=== PATIENT | female | born 1935 | race Two or more races ===

== ENCOUNTER 2016-07-28 03:05 | Inpatient (IN) | payer MEDICARE, MEDICAID ==
[~2016-07-28 03:05] MED LIST: ALENDRONATE SOD70 M2 PO; ASPIR 8181 M1 PO; CALCIUM + VITA1 EAC4 PO; CALCIUM500 MG; GAS RELIEF80 MG; H; METFORMIN HCL500 MG; MULTIVITAMIN1 TAB; NITROGLYCERIN0.4 M2 SL; OMEPRAZOLE40 M2 PO; ZESTORETIC 20-1 EAC4 PO; ZOCOR10 MG
[2016-07-28] MEDS ORDERED: BYSTOLIC5 M1 (03:23)
[2016-07-28] MEDS ORDERED: CHLORTHALIDONE PO (03:25)
[2016-07-28] MEDS ORDERED: AZILSARTAN PO (03:25)
[2016-07-28] MEDS ORDERED: ZOLOFT50 M1 PO (03:25)
[2016-07-28] MEDS ORDERED: REGLAN10 M2 PO (03:27)
[2016-07-28 03:42] LABS: BASO % 0.1 % (0-2); EOS % 0.6 % (0-7); HCT-HEMATOCRIT 33.1 % (34.0-49.0); HGB-HEMOGLOBIN 12.1 gm/dl (12.0-15.5); IMMATURE GRANULOCYTES ABSOLUTE 0.02 tho/cmm (0-0.03); IMMATURE GRANULOCYTES PERCENT 0.3 % (0-0.3); LYMPH % 25.1 % (20-45); LYMPH ABSOLUTE COUNT 1.7 tho/cmm (0.8-4.5); MCH (MEAN CORPUSCULAR HGB) 29.6 pg (28.0-32.0); MCV (MEAN CELL VOLUME) 80.9 fl (82.0-96.0); MEAN PLATELET VOLUME 9.2 cmc (9.4-12.4); MONO % 8.4 % (0-12); MONOCYTE ABSOLUTE COUNT 0.6 tho/cmm (0.0-1.2); NEUTROPHIL ABSOLUTE COUNT 4.5 tho/cmm (1.6-8.0); NEUTROPHIL-AUTOMATED 4.5 tho/cmm (1.6-8.0); NEUTROPHILS % 65.5 % (40-80); PLATELET COUNT 294 tho/cmm (150-450); RED BLOOD COUNT 4.09 mil/cmm (4.00-5.20); RED CELL DISTRIBUTION WIDTH 11.8 % (12.4-16.4); WHITE BLOOD COUNT 6.9 tho/cmm (4.0-10.0)
[2016-07-28 03:45] LABS: MCHC MEAN CORPUSCULAR HGB CONC 36.6 % (32.0-36.0)
[2016-07-28 03:56] LABS: ALB/GLOB RATIO 1.1 (0.8-2.0); ALBUMIN 3.7 g/dl (3.5-5.0); ALKALINE PHOSPHATASE 57 U/L (33-138); ALT/SGPT 26 U/L (12-78); ANION GAP 17 mmol/L (0-20); AST/SGOT 26 U/L (10-40); BILIRUBIN,TOTAL 0.6 mg/dl (0-1.5); BLOOD UREA NITROGEN 7 mg/dl (6-24); CALCIUM 8.3 mg/dl (8.5-10.5); CARBON DIOXIDE-VENOUS 22 mmol/L (22-32); CHLORIDE 75 mmol/l (96-110); CREATININE 0.58 mg/dl (0.50-1.10); GLUCOSE 137 mg/dL (70-110); LIPASE 140 U/L (73-393); POTASSIUM 3.1 mmol/L (3.7-5.1); eGFR VALUE FOR BLACK >90 mL/Min
[2016-07-28 04:04] LABS: MAGNESIUM 1.3 mg/dl (1.8-2.6)
[2016-07-28 04:48] LABS: TSH-THYROID STIMULATING HORM. 4.21 uIU/ml (0.40-3.80)
[2016-07-28 04:51] LABS: SODIUM 111 mmol/L (135-145)
[2016-07-28 06:27] LABS: ANION GAP 14 mmol/L (0-20); BLOOD UREA NITROGEN 5 mg/dl (6-24); CALCIUM 7.9 mg/dl (8.5-10.5); CARBON DIOXIDE-VENOUS 22 mmol/L (22-32); CHLORIDE 81 mmol/l (96-110); CREATININE 0.52 mg/dl (0.50-1.10); GLUCOSE 125 mg/dL (70-110); POTASSIUM 3.4 mmol/L (3.7-5.1); eGFR VALUE FOR BLACK >90 mL/Min
[2016-07-28 06:31] LABS: SODIUM 114 mmol/L (135-145)
[2016-07-28 07:18] LABS: URINE BILIRUBIN NEGATIVE (NEG); URINE BLOOD SMALL (NEG); URINE GLUCOSE (UA) NEGATIVE (NEG); URINE KETONE SMALL (NEG); URINE LEUKOCYTE ESTERASE NEGATIVE (NEG); URINE NITRITE NEGATIVE (NEG); URINE PROTEIN NEGATIVE (NEG); URINE SPECIFIC GRAVITY 1.005 (1.003-1.030)
[2016-07-28 07:19] LABS: URINE APPEARANCE CLEAR; URINE COLOR STRAW
[2016-07-28 07:21] LABS: ABG CO2 ARTERIAL 23 mmol/L (21-27); ARTERIAL BLD GAS O2 SATURATION 96 % (95-98); ARTERIAL BLOOD GAS PCO2 33 mmHg (32-45); ARTERIAL PO2 83 mmHg (70-100); BICARBONATE 22 mmol/L (21-28); BLOOD GAS BASE EXCESS -1 mM/L (-/+3); PH 7.44 Units (7.35-7.45)
[2016-07-28 07:27] LABS: URINE SODIUM-RANDOM 89 mmol/L (20-110)
[2016-07-28 07:37] LABS: PHOSPHOROUS 2.2 mg/dl (2.5-4.9)
[2016-07-28 07:48] LABS: PROCALCITONIN <0.05 ng/ml (0.05-0.09)
[2016-07-28 07:51] LABS: URINE EPITHELIAL CELLS 0-1 /[HPF] (0-10); URINE WBC 0-1 /[HPF] (0-5)
[2016-07-28 07:54] LABS: C-REACTIVE PROTEIN <0.3 mg/dl (0-0.9)
[2016-07-28 08:15] LABS: OSMOLALITY 224 mOsm/kg (275-295)
[2016-07-28 12:59] LABS: URINE BILIRUBIN NEGATIVE (NEG); URINE BLOOD NEGATIVE (NEG); URINE GLUCOSE (UA) NEGATIVE (NEG); URINE KETONE NEGATIVE (NEG); URINE LEUKOCYTE ESTERASE NEGATIVE (NEG); URINE NITRITE NEGATIVE (NEG); URINE PROTEIN NEGATIVE (NEG); URINE SPECIFIC GRAVITY 1.005 (1.003-1.030)
[2016-07-28 13:00] LABS: URINE APPEARANCE CLEAR; URINE COLOR COLORLESS
[2016-07-28 13:32] LABS: URINE SODIUM-RANDOM 54 mmol/L (20-110)
[2016-07-29 04:08] LABS: EOS % 0.6 % (0-7); HGB-HEMOGLOBIN 11.8 gm/dl (12.0-15.5); IMMATURE GRANULOCYTES ABSOLUTE 0.01 tho/cmm (0-0.03); IMMATURE GRANULOCYTES PERCENT 0.2 % (0-0.3); LYMPH % 34.7 % (20-45); LYMPH ABSOLUTE COUNT 1.7 tho/cmm (0.8-4.5); MCH (MEAN CORPUSCULAR HGB) 29.7 pg (28.0-32.0); MCHC MEAN CORPUSCULAR HGB CONC 35.8 % (32.0-36.0); MCV (MEAN CELL VOLUME) 83.1 fl (82.0-96.0); MEAN PLATELET VOLUME 9.2 cmc (9.4-12.4); MONO % 15.5 % (0-12); MONOCYTE ABSOLUTE COUNT 0.8 tho/cmm (0.0-1.2); NEUTROPHIL ABSOLUTE COUNT 2.4 tho/cmm (1.6-8.0); NEUTROPHIL-AUTOMATED 2.4 tho/cmm (1.6-8.0); PLATELET COUNT 277 tho/cmm (150-450); RED BLOOD COUNT 3.97 mil/cmm (4.00-5.20); RED CELL DISTRIBUTION WIDTH 12.4 % (12.4-16.4)
[2016-07-29 04:16] LABS: ANION GAP 13 mmol/L (0-20); BLOOD UREA NITROGEN 10 mg/dl (6-24); CALCIUM 7.9 mg/dl (8.5-10.5); CARBON DIOXIDE-VENOUS 24 mmol/L (22-32); CHLORIDE 99 mmol/l (96-110); CHOLESTEROL 128 mg/dl (120-200); CREATININE 0.57 mg/dl (0.50-1.10); GLUCOSE 89 mg/dL (70-110); HDL CHOLESTEROL 76 mg/dl (40-60); LDL CHOLESTEROL 43 mg/dl (0-99); MAGNESIUM 2.1 mg/dl (1.8-2.6); POTASSIUM 4.2 mmol/L (3.7-5.1); SODIUM 132 mmol/L (135-145); TRIGLYCERIDES 47 mg/dl (<149); VLDL 9 mg/dl (0-30); eGFR VALUE FOR BLACK >90 mL/Min
[2016-07-29 09:22] LABS: PROCALCITONIN <0.05 ng/ml (0.05-0.09)
== END 2016-07-29 13:30 | DRG 641 ==
LOC: EDMED 03:05 → EMR2 06:49 → PCUA 08:55
PROVIDERS: Emergency Medicine; ADMIT Internal Medicine
DX: E87.1 Hypo-osmolality and hyponatremia (principal); E11.9 Type 2 diabetes mellitus without complications; E83.42 Hypomagnesemia; E87.6 Hypokalemia; I10 Essential (primary) hypertension
CPT/HCPCS: J1650; J1815; J2405; J3475; J7030